=== PATIENT | male | born 1955 | race Caucasian/White ===

== ENCOUNTER 2016-05-25 15:59 | Emergency (ER) | payer OTHER ==
[2016-05-25] MEDS ORDERED: HYDROmorphone 1 MG/ML Syringe IVPUSH ONE ×2 (16:21→17:32)
[2016-05-25] MEDS ORDERED: Sodium Chloride 0.9% 10 ML Syringe FLUSH PRN (16:21)
[2016-05-25] MEDS ORDERED: Ondansetron 4 MG/2 ML SDV IVPUSH ONE (16:21)
--- NOTE | 2016-05-25 16:33 | EDM.PDOC ---
ED HPI Trauma - General Chief Complaint: Lower Extremity Injury/Pain Stated Complaint: L ANKLE INJURY Time Seen by Provider: 05/25/16 16:20 Source: Reports: Patient History Limitations: Reports: No limitations - History of Present Illness INITIAL COMMENTS - FREE TEXT/NARRATIVE: Patient is a 61-year-old male who presents to the ED complaining of left ankle pain. States while walking on the ice he slipped and heard a popping noise to his left ankle with obvious deformity. States this occurred at work. He presents to the ED covered in mud. States during the fall he did not hit his head nor did he injure his neck or back. He has no other complaints to his body. Denies any previous past medical history or prescription medications. Patient smokes one pack per day. Occurred When: just prior to arrival Occurred Where: work Method of Injury: fall Severity: moderate Pain/Injury Location: Reports: lower extremity, left (ankle). Denies: head, neck, pelvis, back, upper extremity, right, upper extremity, left, lower extremity, right Consciousness: Reports: no loss of consciousness Associated Symptoms: Reports: trouble walking (2nd to ankle pain ) Allergies/ADRs: Allergies No Known Allergies Allergy (Verified 05/25/16 16:18) Home Medications: Ambulatory Orders . [No Known Home Meds] 05/25/16 [Confirmed 05/25/16] Past Medical History - Past Health History Medical/Surgical History: Denies Medical/Surgical History Social & Family History - Tobacco Use Smoking Status *Q: Current Every Day Smoker Years of Tobacco use: 45 Packs/Tins Daily: 16 - Recreational Drug Use Recreational Drug Use: No Review of Systems - Review of Systems Review Of Systems: See Below Musculoskeletal: Reports: joint pain (left ankle), joint swelling (left ankle). Denies: neck pain, back pain Skin: Reports: no symptoms Neurological: Denies: Numbness, Tingling Trauma Exam - Physical Exam Exam: See Below Exam Limited By: No limitations General Appearance: Reports: alert, WD/WN, moderate distress Head: Reports: atraumatic, normocephalic Ears: Reports: hearing grossly normal Nose: Reports: normal inspection Throat/Mouth: Reports: Normal voice, No airway compromise Neck: Reports: non-tender, full range of motion, normal alignment, normal inspection Respiratory Exam: Reports: no respiratory distress, lungs clear, normal breath sounds, no accessory muscle use, chest non-tender Cardiovascular: Reports: normal peripheral pulses, regular rate, rhythm Back: Reports: full range of motion, normal inspection, non-tender Extremities: Reports: no evidence of injury (No pain to upper extremities, pelvis, or right lower extremities. He has no pain to the left hip, upper, andknee. Pain noted to the proximal fibula. ), other (Deformity noted to the left ankle with foot rotated outward. Swelling present. Pain with palpation. No sensory deficits noted. ) Neurologic: Reports: no motor/sensory deficits, alert, normal mood/affect, oriented x 3 Skin: Reports: Normal color, Warm/dry - Clyde Coma Score Best Eye Response (Clyde): (4) open spontaneously Best Verbal Response (Clyde): (5) oriented Best Motor Response (Lizzie): (6) obeys commands Course - Vital Signs Last Recorded V/S: Last Vital Signs Temp 97.2 F 05/25/16 16:15 Pulse 76 05/25/16 16:15 Resp 18 05/25/16 16:15 BP 130/97 H 05/25/16 16:15 Pulse Ox 100 05/25/16 16:15 - Orders/Labs/Meds Orders: Active Orders 24 hr Category Date Time Status Peripheral IV Care [RC] . DIRECTED Care 05/25/16 16:21 Active Ankle Min 3V Lt [CR] Stat Exams 05/25/16 16:21 Taken Tibia Fibula Lt [CR] Stat Exams 05/25/16 16:35 Taken Sodium Chloride 0.9% [Saline Flush] Med 05/25/16 16:21 Active 10 ml FLUSH ASDIRECTED PRN Peripheral IV Insertion Adult [OM.PC] Stat Oth 05/25/16 16:21 Ordered Medication Orders Sodium Chloride (Saline Flush) 10 ml FLUSH ASDIRECTED PRN PRN Reason: Keep Vein Open Meds: Medications Generic Name Dose Route Start Last Admin Trade Name Freq PRN Reason Stop Dose Admin Sodium Chloride 10 ml 05/25/16 16:21 Saline Flush FLUSH ASDIRECTED PRN Keep Vein Open Discontinued Medications Generic Name Dose Route Start Last Admin Trade Name Freq PRN Reason Stop Dose Admin Hydromorphone HCl 1 mg 05/25/16 16:21 05/25/16 16:43 Dilaudid IVPUSH 05/25/16 16:22 1 mg ONETIME ONE Administration Hydromorphone HCl 1 mg 05/25/16 17:32 Dilaudid IVPUSH 05/25/16 17:33 ONETIME ONE Ondansetron HCl 4 mg 05/25/16 16:21 05/25/16 16:42 Zofran IVPUSH 05/25/16 16:22 4 mg ONETIME ONE Administration - Re-Assessments/Exams Free Text/Narrative Re-Assessment/Exam: Patient presents to the ED with obvious deformity noted to the left ankle in severe pain. Ordered a peripheral IV with Dilaudid 1 mg IVP. X-ray of the left ankle and also tib-fib are to be obtained. Ankle was splinted with pillow with decrease in pain noted. 1635 X-ray of the left ankle bimalleolar fracture with moderate displacement. 1644 X-ray of the left tibia/fibula revealed non displaced fracture of the proximal fibula. 1717 Dr. Herrera orthopedic surgeon resource protection specialist at [facility] has accepted the patient. 1720 Ambulance was notified for transfer. 1735 Patient complained of worsening pain to the left ankle. In preparation for splint placement I ordered 1 mg IV Dilaudid. With preparing for splint placement patient's O2 sats dropped down in the high 80s. It appeared patient was holding his breath. Supplemental oxygen was applied with O2 sats reading in the 90s. We held off on administering the IV Dilaudid with recent findings. Pain did appear to be in better control the patient stated. Long posterior leg splint along with stirrup splint applied with no complications. Pain has decreased with immobilizing. 05/25/16 18:03 Departure - Departure Time of Disposition: 18:02 Disposition: DC/Tfer to Acute Hospital 02 Condition: fair Clinical Impression: Bimalleolar ankle fracture Qualifiers: Encounter type: initial encounter Fracture type: closed Laterality: left Qualified Code(s): S82.842A - Displaced bimalleolar fracture of left lower leg, initial encounter for closed fracture Fracture of proximal end of fibula Qualifiers: Encounter type: initial encounter Fracture type: closed Fracture morphology: unspecified fracture morphology Laterality: left Qualified Code(s): S82.832A - Other fracture of upper and lower end of left fibula, initial encounter for closed fracture Referrals: PCP,None [Primary Care Provider] - Forms: ED Department Discharge - My Orders Last 24 Hours: My Active Orders 05/25/16 16:21 Peripheral IV Care [RC] . DIRECTED Ankle Min 3V Lt [CR] Stat Sodium Chloride 0.9% [Saline Flush] 10 ml FLUSH ASDIRECTED PRN Peripheral IV Insertion Adult [OM.PC] Stat 05/25/16 16:35 Tibia Fibula Lt [CR] Stat - Assessment/Plan Last 24 Hours: My Active Orders 05/25/16 16:21 Peripheral IV Care [RC] . DIRECTED Ankle Min 3V Lt [CR] Stat Sodium Chloride 0.9% [Saline Flush] 10 ml FLUSH ASDIRECTED PRN Peripheral IV Insertion Adult [OM.PC] Stat 05/25/16 16:35 Tibia Fibula Lt [CR] Stat
[2016-05-25 18:57] VITALS: BP 119/76
--- NOTE | 2016-05-26 09:56 | CR ---
Left tibia and fibula: AP and lateral views of the left tibia and fibula were obtained. Nondisplaced proximal fibular fracture is seen. Proximal tibia is intact. Ankle fracture again noted. Impression: 1. Nondisplaced proximal fibular fracture. Diagnostic code #3
--- NOTE | 2016-05-26 10:47 | CR ---
Left ankle: Four views of the left ankle were obtained. Comparison: No previous study. Displaced trimalleolar fracture is noted. Unstable ankle mortise is seen. Diffuse soft tissue swelling is identified. Impression: 1. Displaced trimalleolar fracture causing unstable ankle mortise. Diagnostic code #3
== END 2016-05-25 18:20 ==
LOC: JD.ED 15:59
DX: S82.842A Displaced bimalleolar fracture of left lower leg, initial encounter for closed fracture (principal); S82.832A Other fracture of upper and lower end of left fibula, initial encounter for closed fracture; F17.210 Nicotine dependence, cigarettes, uncomplicated; W00.0XXA Fall on same level due to ice and snow, initial encounter; Y99.0 Civilian activity done for income or pay
CPT/HCPCS: 29505; 73590; 73610; 96374; 96375; 96376; 99284; J1170; J2405